=== PATIENT | female | born 1985 | race Caucasian/White ===

== ENCOUNTER 2018-05-21 08:16 | Emergency (ER) | payer OTHER ==
[2018-05-21] MEDS ORDERED: methylPREDNISolone SOD SUCC PF 125 MG/2 ML VIAL. IV (08:30)
[2018-05-21] MEDS ORDERED: diphenhydrAMINE 50 MG/ML VIAL IVP (08:30)
[2018-05-21] MEDS ORDERED: FAMOTIDINE 20 MG/2 ML VIAL IVP (08:30)
[2018-05-21 08:38] LABS: URINE HCG POC HCG NEGATIVE (Negative)
[2018-05-21 08:56] LABS: BILIRUBIN,URINE SMALL (NEG); CLARITY,URINE CLOUDY; COLOR,URINE AMBER; GLUCOSE,URINE NEGATIVE (NEG); NITRITE,URINE NEGATIVE (NEG); PH,URINE 5.5; PROTEIN,URINE 30 mg/dL (NEG-TRACE)
[2018-05-21 09:11] LABS: BACTERIA,URINE FEW /HPF (0-FEW); RBC,URINE OCC /HPF (0-2); SQUAMOUS EPITHELIAL CELL,UR MOD /LPF; WBC,URINE OCC /HPF (0-4)
[2018-05-21] MEDS: cefTRIAXone IM 250 MG VIAL IM (09:56)
[2018-05-21] MEDS: AZITHROMYCIN 250 MG TABLET. PO (09:56)
== END 2018-05-21 10:14 | disposition home or self-care (01) ==
LOC: ER 10:14
DX: R30.0 Dysuria (principal); Z87.440 Personal history of urinary (tract) infections; N89.8 Other specified noninflammatory disorders of vagina
CPT/HCPCS: 81001; 81025; 87491; 87591; 96372; 99284; J0696; Q0144